=== PATIENT | female | born 2005 | race Caucasian/White ===

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

== ENCOUNTER → 2023-02-17 13:47 | Outpatient (BNVA) | payer MEDICAID, SELFPAY | PROVIDERS: PCP Nurse Practitioner; Visit Provider Nurse Practitioner Family | DX: I95.1 Orthostatic hypotension (principal) | CPT/HCPCS: 99213 ==

== ENCOUNTER 2025-03-13 14:30 | Inpatient (IN) | payer MEDICAID, SELFPAY ==
[2025-03-13] VITALS (85 sets, daily range): BP systolic 100–145; BP diastolic 55–84; PULSE 78–146; RESP 16–18; TEMP 36.3; O2SAT 89–100; BMI 25.7
[2025-03-13 14:40] LABS: Hematocrit 36.5 % (36-47); Hemoglobin 12.90 g/dL (11.27-16.99); Mean Corpuscular HGB Conc 35.3 g/dL (30-55); Mean Corpuscular Hemoglobin 33.2 pg (27-33); Mean Corpuscular Volume 94.1 fl (85-98); Nucleated Red Blood Cells % 0 %; Platelet Count 237 10^3/cmm (157-399); Red Blood Count 3.88 10^6/uL (3.85-5.65); White Blood Count 14.64 10^3/uL (3.29-11.43)
--- NOTE | 2025-03-13 15:23 | P.ANESASSM_ITS ---
Pre-Anesthetic Assessment Height/Weight: Height 1.68 m Weight 72.121 kg Pulse Resp BP 104 H 16 129/75 03/13/25 15:06 03/13/25 14:55 03/13/25 15:06 Preop Diagnosis: labor epidural Was Beta Abdullahi taken within 24 hours: N/A Was Clonidine taken within 24 hours: N/A Last Intake: 15:25 Social No alcohol and No tobacco Exam oriented x 3 Airway Submandibular: within normal limits Cervical ROM: within normal limits Mallampati: Class III Dentition: false History/ROS No significant history except as noted CV/HEM None reported Hepatic None reported GI None reported Metabolic None reported Musc/skel None reported Neuropsych None reported Anesthetic Plan ASA status: 1 Anesthesia: Anesthesia Evaluation Risk of > 500 ml blood loss (7ml/kg in children): Yes, adequate IV access and fluids planned Medications/Allergies Home Medications ?Medication ?Instructions ?Recorded ?Confirmed ?Last Taken ?Type acetaminophen 325 mg tablet 650 mg PO QID PRN 11/26/22 12/09/22 Unknown History cetirizine 10 mg tablet 10 mg PO DAILY 30 days #30 t abs 11/26/22 12/09/22 Unknown Rx fluticasone propionate 50 1 spray intranasal BID 7 day s 11/26/22 12/09/22 Unknown Rx mcg/actuation nasal #15.8 mL spray,suspension ibuprofen 200 mg tablet 800 mg PO Q8H PRN 11/26/22 0 12/09/22 Unknown History ondansetron 4 mg disintegrating 4 mg PO Q8H PRN nausea and 12/09/22 12/09/22 Unknown Rx tablet vomiting #10 tabs polyethylene glycol 3350 17 34 g PO BID #476 grams 12/09/22 Unknown Rx gram/dose oral powder Allergies Allergy/AdvReac Type Severity Reaction Status Date / Time No Known Allergies Allergy Verified 02/17/23 14:01 [facility] Anesthesia Medical History (Updated 02/17/23 @ 09:42 by SHILPI Iglesias) Orthostatic hypotension Sore throat and laryngitis Allergic rhinitis due to allergen Abdominal pain History of ovarian cyst No pertinent past medical history Denies diabetes, asthma, hypertension, seizures, DVT/PE PCP: SHILPI Veronica Migraine Surgical History History of umbilical hernia repair At the age of 1-she is not sure if mesh was used. Family History Grandfather Diabetes maternal Heart disease paternal Stroke Myocardial infarction Grandmother Hyperlipidemia paternal Mother Renal cancer Hypertension Tachycardia Social History Smoking and tobacco/nicotine status: never used tobacco/nicotine Second hand smoke exposure: No Alcohol intake: never Substance/Drug Use: never Adopted: No Highest education level completed: 9th Grade Current gender identity: Female Female Reproductive History : 1 Spontaneous abortions: No Data Anesthesia 03/13/25 14:14 Short CBC 03/13/25 Range/Units 14:14 WBC 14.64 H (3.29-11.43) 10^3/uL Hgb 12.90 (11.27-16.99) g/dL Hct 36.5 (36-47) % MCV 94.1 (85-98) fl Plt Count 237 (157-399) 10^3/cmm Neut % (Auto) 83.8 % Neut # (Auto) 12.25 H (1.8-7.7) 10^3/uL Cardiac Studies: 2 Holter Monitor 09/21/22
[2025-03-13] MEDS: ROPivacaine premix 200 MG/100 ML PREMIX 10 MG EPIDURAL (15:39)
--- NOTE | 2025-03-13 15:49 | P.ANESUD_ITS ---
Pre-Anesthetic Update Pre-Anesthetic Assessment: Date of Surgery/Procedure: 03/13/25 Preop Jazmin gnosis: labor epidural Proposed Procedure: No changes since patient was seen in preop clinic Patient requesting epidural placement. Labs reviewed from today, platelets 237 Plan for routine epidural placement Labs Last 48hrs: Short CBC 03/13/25 Range/Units 14:14 WBC 14.64 H (3.29-11.43) 10^ 3/uL Hgb 12.90 (11.27-16.99) g/ dL Hct 36.5 (36-47) % MCV 94.1 (85-98) fl Plt Count 237 (157-399) 10^3/c mm Neut % (Auto) 83.8 % Neut # (Auto) 12.25 H (1.8-7.7) 10^3/u L Blood Bank 03/13/25 14:14 Blood Type B Positive Rho(D) Type Rh positive Antibody Screen Negative Vitals: Pulse Rate 88 03/13/25 15:46 Respiratory Rate 16 03/13/25 14:55 Blood Pressure 117/75 03/13/25 15:43 Pulse Oximetry 100 03/13/25 15:46 Cardiac Studies: Holter Monitor 09/21/22
--- NOTE | 2025-03-13 15:49 | ANES.PROC ---
Anesthesia Procedures Procedure/Date: 03/13/25 Epidural: Time Out Performed: Yes Consents Signed: Procedure Consent and NPO Consent Consent: requested by attending/covering physician and from patient Lumbar Level: L3-L4 Epidural position: sitting Additional Comments: Site was sterilely prepped with ChloraPrep. 1% lidocaine was used to numb the skin. An 18-gauge epidural needle was then introduced until [id number] was achieved around 5 cm to the skin. Epidural catheter was then threaded into the epidural space and left at 15 cm to skin. Negative paresthesias. Test dose was negative. Sterile dressing was applied. Ropivacaine 0.2% was set at 10 mL/h
--- NOTE | 2025-03-13 16:52 | PM.OPHPUD ---
Labor & Delivery H&P Update Date of Procedure: March 13, 2025 Date H&P Performed: 03/12/25 Changes to previous documentation: The patient arrived to the hospital with consistent contractions making cervical change Admission Diagnosis: 19-year-old 1 at 39 weeks estimated gestational age presenting in active labor Preop diagnosis: labor epidural Planned procedure: Spontaneous vaginal delivery Other information: The patient is a pleasant 19-year-old female who has had an unremarkable . She has had consistent care. There have been no complications. Her blood type is B+. Her antibody screen is negative. She failed her 1 hour glucose screen but passed her 3-hour screen. Her GBS status is negative. She is rubella immune. The remainder of her infectious disease profile is within normal limits. Related Problem List Diagnoses 1. 39 weeks gestation of : A&P Assessment and plan 1. 39 weeks gestation of : The patient received an epidural. An amniotomy was performed. The patient had blood-tinged fluid. The baby's had a reactive strip category 1. I anticipate a spontaneous vaginal delivery. Status: Acute PDMP PDMP Reviewed: Not Reviewed
--- NOTE | 2025-03-13 22:25 | P.PCNOB_ITS ---
Delivery Note: Date of delivery: March 13, 2025 Pre-delivery diagnoses: 19-year-old 1 at 39 weeks estima sushant gestational age presenting in active labor Post-delivery diagnoses: Status post spontaneous vaginal delivery Procedure: Spontaneous vaginal delivery Delivering Physician: Kirk Hinson Estimated blood loss (mL): 100 Pre-Delivery Course: The patient presented to the hospital in active labor. An epidural was placed. An amniotomy was performed. She progressed to complete without difficulty. Delivery: DELIVERY: The patient progressed to complete without difficulty. She delivered a female with a weight of 7 pounds 1 ounce with Apgars of 9, 9. The baby was delivered from the KENNEDY position and placed on the mother's abdomen. The cord was then clamped and cut. There was no nuchal cord. There was no meconium. The placenta and 3 vessel cord were delivered intact shortly thereafter. The perineum and vaginal vault were carefully examined. A first-degree posterior midline to slightly left vaginal wall laceration was noted. A single [id number] stitch was placed and excellent hemostasis was maintained. Both the mother and the baby were in stable condition. Post-Delivery Status: Good History History History 0 Term Miscarriages/Ectopic Living Children A&P Assessment and plan 1. 39 weeks gestation of : I anticipate routine care 2. Spontaneous vaginal delivery: PDMP PDMP Reviewed: Not Reviewed Coding Level of Care Code Acute Code for Chg Fwd Diagnoses 39 weeks gestation of Z3A.39 Spontaneous vaginal delivery O80
[2025-03-14] VITALS (7 sets, daily range): BP systolic 106–128; BP diastolic 63–77; PULSE 70–100; RESP 16–18; TEMP 36.6–36.9; O2SAT 98
[2025-03-14] MEDS: benzocaine-menthol 78 gm Canister 1 SPRAY TOPICAL (01:43)
[2025-03-14] MEDS: PRENATAL VIT NO.130/IRON/FOLIC 1 EACH TABLET PO (05:41)
[2025-03-14 11:50] LABS: Hematocrit 34.1 % (36-47); Hemoglobin 11.80 g/dL (11.27-16.99); Mean Corpuscular HGB Conc 34.6 g/dL (30-55); Mean Corpuscular Hemoglobin 33.1 pg (27-33); Mean Corpuscular Volume 95.8 fl (85-98); Platelet Count 213 10^3/cmm (157-399); Red Blood Count 3.56 10^6/uL (3.85-5.65); White Blood Count 13.20 10^3/uL (3.29-11.43)
--- NOTE | 2025-03-14 12:07 | ANE.PACU2 ---
Inpatient post-anesthesia follow up: Airway intact: Yes Vital signs: Temperature 97.9 F Pulse Rate 83 Respiratory Rate 16 Blood Pressure 107/68 Pulse Oximetry 98 Oxygen Delivery Me thod Room Air Oxygen Flow Rate Fraction of Inspir ed Oxygen Hydration adequate: Yes Nausea and vomiting: No Pain level: 1 Mental status: Baseline Epidural Start/End: Epidural Start Date: 03/13/25 Epidural Start Time: 13:36 Epidural End Date: 03/13/25 Epidural End Time: 23:33
--- NOTE | 2025-03-14 18:36 | P.DS_ITS ---
Discharge Providers CURATOR OF COLLECTIONS Date of Admission: 03/13/25 14:30 Date of Discharge: 03/14/25 Attending Provider at Admission: Kirk Hinson MD Attending Provider at Discharge: Kirk Hinson MD Diagnoses at Discharge Discharge Diagnosis 1. 39 weeks gestation of : 2. Spontaneous vaginal delivery: Reason for Visit Reason for Visit: ctx Hospital Course Hospital Course The patient presented to the hospital in active labor. An epidural was placed. An amniotomy was performed. She progressed to complete and had a relatively unremarkable vaginal delivery. She had a first-degree vaginal tear. It was easily repaired with a [id number] stitch. Her course was also unremarkable. Her bleeding was within normal limits. Her pain was well- controlled. She had some challenges with breast-feeding, but the nurses educated her, and helped her use a nipple shield for assistance. Information Peripartum Data: Infant Delivery Method: Vaginal Physical Exam Narrative: The patient is alert. She appears comfortable. Her heart has a regular rate and rhythm with no murmurs appreciated. Lungs are clear to auscultation bilaterally. Her fundus is firm and below the umbilicus. Urinary Catheter Management: Benjamin: Cath Placed During This Visit: yes, but has since been removed by the nurse Reason for Continuing Indwelling Catheter: Decision to DC Catheter Urinary Catheter Date of Insertion: 03/13/25 Urinary Catheter Time of Insertion: 16:20 Date Urinary Catheter Removed: 03/13/25 Time Urinary Catheter Discontinued: 20:54 History History History 0 Term Miscarriages/Ectopic Living Children Discharge Data Studies Completed and Pending Laboratory Results WBC 13.20 10^3/uL (3.29-11.43) H 03/14/25 11:30 RBC 3.56 10^6/uL (3.85-5.65) L 03/14/25 11:30 Hgb 11.80 g/dL (11.27-16.99) 03/14/25 11:30 Hct 34.1 % (36-47) L 03/14/25 11:30 MCV 95.8 fl (85-98) 03/14/25 11:30 MCH 33.1 pg (27-33) H 03/14/25 11:30 MCHC 34.6 g/dL (30-55) 03/14/25 11:30 RDW 12.9 % (12.1-15.1) 03/14/25 11:30 Plt Count 213 10^3/cmm (157-399) 03/14/25 11:30 MPV 9.7 fL (7.4-10.4) 03/14/25 11:30 Neut % (Auto) 83.8 % 03/13/25 14:14 Lymph % (Auto) 9.5 % 03/13/25 14:14 [place] % (Auto) 5.9 % 03/13/25 14:14 Eos % (Auto) 0.1 % 03/13/25 14:14 Baso % (Auto) 0.2 % 03/13/25 14:14 Neut # (Auto) 12.25 10^3/uL (1.8-7.7) H 03/13/25 14:14 Lymph # (Auto) 1.4 10^3/uL (0.8-4.8) 03/13/25 14:14 [place] # (Auto) 0.9 10^3/uL (0.2-0.9) 03/13/25 14:14 Eos # (Auto) 0.0 10^3/uL (0.0-0.8) 03/13/25 14:14 Baso # (Auto) 0.0 10^3/uL (0.0-0.1) 03/13/25 14:14 Nucleated RBC % (auto) 0 % 03/13/25 14:14 Nucleated RBCs # 0.0 /100WBC 03/13/25 14:14 Blood Type B Positive 03/13/25 14:14 Rho(D) Type Rh positive 03/13/25 14:14 Antibody Screen Negative 03/13/25 14:14 Vitals Last Vital Signs Temp 97.9 F 03/14/25 09:45 Pulse 83 03/14/25 09:45 Resp 16 03/14/25 09:45 BP 107/68 03/14/25 09:45 Pulse Ox 98 03/14/25 05:42 O2 Del Method Room Air 03/14/25 09:45 Results Labs OB ([facility]): Blood Type B Positive 03/13/25 Antibody Screen Negative 03/13/25 Hct, (36-47) 34.1 % L Today Hgb, (11.27-16.99) 11.80 g/dL Today Rho(D) Type Rh positive 03/13/25 Plt Count, (157-399) 213 10^3/cmm Today Discharge Plan Discharge Patient Disposition: Home Condition: Stable Prescriptions: New ibuprofen 800 mg Tablet 800 mg PO TID Qty: 45 0RF Continued [id number] 1 mg Tablet 1 tab PO DAILY Discharge Order = DC NOW: Discharge Order (Routine); Ordered 03/14/25 Ordered By: Kirk Hinson Referrals: Kirk Hinson MD [Physician, Family Practice] - 6 Weeks Discharge Diet: Usual diet Discharge Activity: Limit activity as instructed Patient Instructions: Opioid Safety, Patient Portal & Rogelio Instructions Discharge Attestations CURATOR OF COLLECTIONS Time Spent in Discharge Care*: less than 30 min Coding Level of Care Code Acute Code for Chg Fwd Diagnoses 39 weeks gestation of Z3A.39 Spontaneous vaginal delivery O80
== END 2025-03-14 23:54 | disposition home or self-care (01) | DRG 560 ==
LOC: OPOB 14:30 → OBGYN 14:30
PROVIDERS: Admitting Provider Family Medicine; PCP Nurse Practitioner; Visit Provider Family Medicine
DX: O70.0 First degree perineal laceration during delivery (principal); Z3A.39 39 weeks gestation of pregnancy; Z37.0 Single live birth
CPT/HCPCS: 36415; 51702; 59025; 59409; 85025; 85027; 86850; 86900; 99211; J2795; J7120; J7121; J9999; Q0162